=== PATIENT | male | born 1945 | race Caucasian/White ===

== ENCOUNTER 2024-09-23 00:36 | Emergency (ER) | payer MEDICARE, SELFPAY ==
[2024-09-23] VITALS (15 sets, daily range): BP systolic 47–96; BP diastolic 29–68; PULSE 49–114; RESP 14–35; TEMP 36.2–36.7; O2SAT 78–98; BMI 23.6
--- NOTE | 2024-09-23 00:48 | EKG12_ITS ---
Test Reason : ASPIRATION Blood Pressure : */* mmHG Vent. Rate : 88 BPM Atrial Rate : 88 BPM P-R Int : 190 ms QRS Dur : 134 ms QT Int : 404 ms P-R-T Axes : 39 5 124 degrees QTcB Int : 488 ms Normal sinus rhythm Non-specific intra-ventricular conduction block Minimal voltage criteria for LVH, may be normal variant ( Raffi product ) Inferior infarct , age undetermined T wave abnormality, consider lateral ischemia Abnormal ECG Confirmed by TRICIA PRITCHETT, NAZ ([id number]), technical writer and editor OSMIN MANRIQUE ([id number]) on 09/23/2024 8:26:13 AM Referred By: CRISTO Confirmed By: NAZ CLARKE MD
--- NOTE | 2024-09-23 00:48 | CT_ITS ---
PROCEDURE: BRAIN/HEAD WITHOUT CONTRAST 09/23/2024 REASON FOR EXAM: AMS TECHNIQUE: Head CT without intravenous contrast. Coronal and Sagittal reconstruction series were provided. One or more dose reduction techniques were used (e.g., Automated exposure control, adjustment of the mA and/or kV according to patient size, use of iterative reconstruction technique. RADIATION DOSE SUMMARY: CTDlvol: 44.99 mGy DLP: 1727.20 mGycm COMPARISON: None available FINDINGS: Nasal intubation with enteric tube and dual oral intubation with an enteric and orogastric tube. Motion artifact with repeat imaging. The head is tilted to the right. No intracranial hemorrhage, mass effect or CT evidence of large vascular territory acute infarct. Chronic and involutional changes, age advanced. Volume loss, atrophy, asymmetric atrophy of the left cerebellum. Old lacunar infarct left basal ganglia. Mild periventricular white matter low attenuation may represent chronic small-vessel ischemic change. The ventricles appear within limits and midline. Small air-fluid level within the left maxillary sinus with a small amount of frothy material, possible sinusitis. The paranasal sinuses, mastoids and orbits otherwise appear within limits. Bilateral parasellar carotid calcification. Likely cerumen right external auditory canal. CT/Brain/Head without Contrast IMPRESSION: Motion artifact limits the evaluation with 2 scans performed. No evidence of i ntracranial hemorrhage, mass effect or large vascular territory acute infarct by CT. Chronic and involutional changes. Left maxillary sinusitis as above. Nasal and oral intubation as above. Reading Location: [id number]
[2024-09-23] MEDS: 0.9% Normal Saline (1000mL) 1,000 ML 999 ML IV ×3 (00:50→02:53)
[2024-09-23] MEDS: Etomidate 20 MG/10 ML Vial IV (01:04)
[2024-09-23] MEDS: Succinylcholine Chloride 200 MG/10 ML Vial 100 MG IV (01:05)
[2024-09-23 01:06] LABS: Absolute Lymphocyte Count 0.67 X10^3/uL (0.83-4.51); Absolute Neutrophil Count 17.2 X10^3/uL (2.0-7.7); Basophil% 0.5 % (0-1); Eosinophil# 0.08 X10^3/uL; Eosinophils% 0.4 % (0-5); Hematocrit 47.1 % (40-54); Hemoglobin 15.4 g/dL (13.0-16.5); Lymphocyte # 0.67 X10^3/ul (0.83-4.51); Lymphocyte % 3.7 % (19-41); Mean Corp Hgb Conc 32.7 g/dL (32-36); Mean Corpuscular Hgb 30.6 pg (27.0-32.0); Mean Corpuscular Volume 93.5 fL (80-94); Mean Platelet Vol. 10.2 fl (6.2-12.0); Monocyte% 1.1 % (0-10); NRBC Flagged by Analyzer 0 % (0-5); Neutrophil % 93.8 % (47-70); POSITIVE MORPHOLOGY YES; Platelet Count 415 K/mm3 (150-450); RBC Distribution Width CV 17.3 % (11.6-14.6); RBC Distribution Width SD 57.7 fl (35.1-43.9); Red Blood Count 5.04 M/mm3 (4.6-6.2); White Blood Count 18.4 K/mm3 (4.4-11.0)
[2024-09-23 01:07] LABS: Differential Indicated SCAN CRITERIA MET
--- NOTE | 2024-09-23 01:07 | RAD_ITS ---
PROCEDURE: CHEST 1 VIEW (PORTABLE) 09/23/2024 REASON FOR EXAM: SOB, S/P INTUBATION TECHNIQUE: Frontal view of the chest. COMPARISON: None available FINDINGS: Endotracheal tube 3.5 cm above the asad. Nasogastric tube tip and side port within the fundus of the stomach. Enteric tube to the right of the spine with tip in the area of the antrum, not beyond the duodenal jejunal junction. Asymmetric lgawf-wzttdak-wovj-left marked appearing perihilar ill-defined airspace opacities with a right upper zone predominance consistent with pneumonia/pneumonitis, possible aspiration. No pleural effusion identified. Cardiac silhouette is mildly enlarged for technique. Ectatic thoracic aorta. RAD/Chest 1 View (Portable) IMPRESSION: Endotracheal tube 3.5 cm above the asad. Nasogastric tube tip and side port within the fundus of the stomach. Enteric tube to the right of the spine with tip in the area of the antrum, not beyond the duodenal jejunal junction. Asymmetric ljtts-zhzglzy-satw-left marked appearing perihilar ill-defined airsp trinity opacities with a right upper zone predominance consistent with pneumonia/pneumonitis, possible aspiration. No pleural effusion identified. Cardiac silhouette is mildly enlarged for technique. Reading Location: [id number]
--- NOTE | 2024-09-23 01:11 | RAD_ITS ---
EXAM: Diagnostic x-ray abdomen single view portable CLINICAL HISTORY: Nasogastric insertion COMPARISON: None available TECHNIQUE: Single AP semi erect view of the abdomen centered at the diaphragms FINDINGS: Nasogastric tube tip and side port within the fundus of the stomach. Enteric tube to the right of the spine with tip in the area of the antrum, not beyond the duodenal jejunal junction. Please refer to chest radiograph for additional findings. RAD/Abdomen Single View (Portable) IMPRESSION: Nasogastric tube tip and side port within the fundus of the stomach. Enteric tube to the right of the spine with tip in the area of the antrum, not beyond the duodenal jejunal junction. Please refer to chest radiograph for additional findings. Reading Location: [id number]
[2024-09-23] MEDS: fentaNYL drip 100 ML 5 MCG CONT INF (01:15)
[2024-09-23 01:22] LABS: International Normalized Ratio 1.1; Prothrombin Time (Protime)PT. 14.1 SECONDS (11.7-14.9)
[2024-09-23 01:23] LABS: Partial Thromboplast Time 25.6 Seconds (24.1-36.2)
[2024-09-23 01:34] LABS: Anisocytosis RARE; Macrocytosis RARE; Platelet Estimate SLT INC (ADEQ); Red Cell Morphology N CHROM NORMAL (NORM C&C)
[2024-09-23 01:35] LABS: ALB/GLOB Ratio 0.8 RATIO (0.9-2.4); AST(SGOT) 46 U/L (<=37); Alanine Aminotransfer ALT/SGPT 50 U/L (<=46); Alkaline Phosphatase 227 U/L (40-129); Anion Gap 18 (5-15); BUN 48 mg/dL (4-19); BUN/Creat Ratio 28.2 RATIO (10-20); Calcium,Total 9.3 mg/dL (7.6-11.0); Carbon Dioxide 18.8 mmol/L (21.0-32.0); Chloride 92 mmol/L (98-108); EST Glomerular Filtration Rate 41 (>60); Estimated Creatinine Clearance 38.67 ml/min (50-250); Globulin 3.7 g/dL (2.2-4.2); Glucose 193 mg/dL (70-99); Potassium 5.3 mmol/L (3.3-5.1); Protein, Total 6.7 g/dL (5.9-8.4); Sodium Level 129 mmol/L (133-145); Total Bilirubin 0.86 mg/dL (0.00-1.30)
[2024-09-23 01:37] LABS: Lactic Acid 4.6 mmol/L (0.0-2.0)
[2024-09-23 01:49] LABS: Allen Test Positive; Base Excess -8 mmol/L (-2 to +2); Bicarbonate 20.3 mmol/L (22-26); Blood Gas Specimen Type ART; Mode AC; O2 Delivery Device Adult Vent; PEEP 5; PO2 74 mmHG (75-100); RR 14; SITE L Radial; SO2 91 % (95-99); Total Carbon Dioxide 22 mmol/L; pCO2 52.1 mmHg (35-45)
[2024-09-23 02:04] LABS: Troponin T High Sensitivity 120 ng/L (<=22)
--- NOTE | 2024-09-23 02:08 | CPS ---
[employer] notified ER Dr. Yanez of critical values
[2024-09-23 02:46] LABS: CPK Total, Creatine Kinase 44 U/L (24-195); Triglycerides 58 mg/dL
[2024-09-23] MEDS: Cefepime HCl 2 GM in 0.9% Normal Saline (100mL MB+) 100 ML IV (03:01)
[2024-09-23 03:28] LABS: Mucous, Urine 0 SEEN /hpf (<or=2+); Squamous Epithelial Cells - UA 0 SEEN /hpf (0-5)
[2024-09-23 03:31] LABS: Glucose, Dipstick 1000 mg/dl (Normal); Ketone-Dipstick Negative (Negative); Leukocyte Esterase-Dipstick 25 /ul (Negative); Nitrite-Dipstick Negative (Negative); Occult Blood-Urine 150 /ul (Negative); Protein-Dipstick 30 mg/dl (Negative); Specific Gravity, Urine 1.015 (1.002-1.030); Urine Bilirubin Dipstick Negative (Negative); Urine Urobilinogen 1 mg/dl (Normal)
[2024-09-23] MEDS: Vancomycin HCl 1,250 MG in 0.9% Normal Saline (250mL Bag) 250 ML 167 MG IV (03:43)
[2024-09-23 03:44] LABS: Color, Urine Yellow (Yellow); Urine Clarity Clear (Clear)
[2024-09-23 03:45] LABS: Bacteria 1+ /hpf (None Seen); Red Blood Cells-Urine 50-100 SEEN /hpf (0-5); White Blood Cells 10-25 SEEN /hpf (0-5)
--- NOTE | 2024-09-23 03:49 | EX.ED.DYSGE1 ---
HPI History of Present Illness Chief Complaint: Shortness of Breath Narrative Narrative: Patient is a 79-year-old male who presents to the emergency department with limited information via EMS with a chief complaint of altered mental status and concern for aspirating tube feeds. According to EMS his oxygen level was around 80% they placed him on oxygen and brought him here for further evaluation management. History of present illness was unobtainable from the patient secondary to his altered mental status therefore acute care caveat applies PFSH PFS Medical History unable to obtain Home Medications ?Medication ?Instructions ?Recorded ?Last Taken ?Type amiodarone 200 mg tablet 200 mg feeding tube BID 09/23/24 Unknown History aspirin 81 mg capsule 81 mg feeding tube DAILY 09/23/24 Unknown History atorvastatin 40 mg tablet 40 mg feeding tube QHS 09/23/24 Unknown History captopril 12.5 mg tablet 12.5 mg feeding tube Q8H 09/23/24 Unknown History clopidogrel 75 mg tablet 75 mg feeding tube DAILY 09/23/24 Unknown History empagliflozin 10 mg tablet 10 mg feeding tube DAILY 09/23/24 Unknown History ferrous sulfate 300 mg (60 mg 300 mg feeding tube DAILY 09/23/24 Unknown History iron)/5 mL oral liquid furosemide 40 mg tablet 40 mg feeding tube QODAY 09/23/24 Unknown History insulin glargine 100 unit/mL 20 unit subcut DAILY 09/23/24 Unknown History subcutaneous solution ipratropium 0.5 mg-albuterol 3 mg 3 ml inhalation Q6H PRN shortness 09/23/24 Unknown History (2.5 mg base)/3 mL nebulization of breath or wheezing soln levothyroxine 137 mcg capsule 137 mcg PO DAILY 09/23/24 Unknown History pantoprazole 40 mg PO DAILY 09/23/24 Unknown History spironolactone 25 mg tablet 25 mg feeding tube DAILY 09/23/24 Unknown History Allergy/AdvReac Type Severity Reaction Status Date / Time No Known Allergies Allergy Verified 09/23/24 00:54 Surgical History unable to obtain Social History Smoking Status: Unknown if ever smoked ROS ROS ED ROS Narrative Review of systems unobtainable from the patient and for acute care caveat applies EXAM Physical Exam Narrative Exam Narrative: General: Patient was unresponsive upon arrival Head: Atraumatic, normocephalic Eyes: PERRL bilateral, EOMI by, no conjunctival injection noted Neck: Soft and supple, trach midline Cardiovascular: Regular rate and rhythm no murmurs gallops rubs noted Respiratory: Coarse breath sounds bilaterally Abdomen: Soft, nondistended Extremities: Radial pulse +2/4 in the bilateral extremities Neurological: Patient not following commands was altered Skin: Warm, dry Const Vital Signs: 09/23/24 00:38 09/23/24 00:42 09/23/24 00:48 Temperature 97.3 F L 97.3 F L Temperature Source Axillary Axillary Pulse Rate 114 H 106 H Respiratory Rate 33 H 35 H Respiratory Effort Respiratory Pattern Blood Pressure 94/68 94/68 Blood Pressure Mean 76 76 Pulse Ox 89 87 Oxygen Delivery Method Non-Rebreather Non-Rebreather Non-Rebreather Oxygen Flow Rate (L/min) 15 Fraction of Inspired Oxygen (FIO2) 09/23/24 01:03 09/23/24 01:07 09/23/24 01:25 Temperature Temperature Source Pulse Rate 97 92 Respiratory Rate 17 32 H Respiratory Effort Short of Breath Labored Respiratory Pattern Tachypnea Blood Pressure 75/36 L Blood Pressure Mean 49 Pulse Ox 93 92 Oxygen Delivery Method Non-Rebreather Mechanical Ventilator Oxygen Flow Rate (L/min) 15 15 Fraction of Inspired Oxygen (FIO2) 100 09/23/24 01:30 09/23/24 01:55 09/23/24 02:00 Temperature 97.2 F L Temperature Source Axillary Pulse Rate 89 90 Respiratory Rate 34 H 31 H Respiratory Effort Respiratory Pattern Blood Pressure 89/49 L 96/60 Blood Pressure Mean 62 72 Pulse Ox 98 92 Oxygen Delivery Method Mechanical Ventilator Mechanical Ventilator Oxygen Flow Rate (L/min) Fraction of Inspired Oxygen (FIO2) 100 100 100 09/23/24 02:30 09/23/24 03:00 09/23/24 03:00 Temperature Temperature Source Pulse Rate 93 93 93 Respiratory Rate 32 H 31 H 31 H Respiratory Effort Respiratory Pattern Normal Blood Pressure 95/46 L 95/52 L Blood Pressure Mean 62 66 Pulse Ox 90 90 88 Oxygen Delivery Method Mechanical Ventilator Mechanical Ventilator Oxygen Flow Rate (L/min) Fraction of Inspired Oxygen (FIO2) 100 100 100 09/23/24 03:30 09/23/24 04:00 09/23/24 04:00 Temperature 98.1 F Temperature Source Axillary Pulse Rate 91 87 87 Respiratory Rate 31 H 30 H 30 H Respiratory Effort Respiratory Pattern Blood Pressure 80/43 L 71/38 L 71/37 L Blood Pressure Mean 55 49 48 Pulse Ox 92 93 93 Oxygen Delivery Method Mechanical Ventilator Mechanical Ventilator Mechanical Ventilator Oxygen Flow Rate (L/min) Fraction of Inspired Oxygen (FIO2) 100 100 100 09/23/24 04:00 09/23/24 04:30 09/23/24 04:34 Temperature 98.1 F Temperature Source Pulse Rate 90 84 84 Respiratory Rate 28 H 27 H 27 H Respiratory Effort Respiratory Pattern Normal Blood Pressure 74/42 L 74/42 L Blood Pressure Mean 52 52 Pulse Ox 85 85 85 Oxygen Delivery Method Mechanical Ventilator Oxygen Flow Rate (L/min) Fraction of Inspired Oxygen (FIO2) 100 100 MDM MDM MDM Narrative Medical decision making narrative: Patient is a 79-year-old male who presents to the emergency department with a chief complaint of altered mental status hypoxia and concern for tube feed aspiration. On the differential diagnose includes but not limited to intracranial hemorrhage, pneumonia, pneumothorax, UTI. Once workup is obtained reviewed he will be reevaluated Once again the patient was unresponsive when he arrived staff tried to suction his nose and he did not move therefore we reach out to family members and they state that he is a full code. Patient was intubated here in the emergency department and was ultimately placed on the ventilator with further workup pending. Patient's CBC was significant for leukocytosis of 18,000, hemoglobin 15.4, plate count was noted to be normal at 415. Patient's INR was noted to be 1.1, PT of 14.1. Patient's arterial blood gas showed a pH 7.14. Patient sodium was low indicating hyponatremia at 129, potassium was 5.3, creatinine elevated 1.70. Patient lactic acid elevated 4.6, AST and ALT are 46 and 50 respectively. Patient's troponin was noted to be 120 with delta troponin pending. Patient's EKG showed sinus rhythm with a rate of 88 bpm there was some elevation noted in leads II and aVF. I reached out to on-call director of research Dr. Morales who reviewed and states that there are Q waves noted there and this is not acute no acute intervention at this point time. Patient's urinalysis reviewed showed 25 leukocyte esterase 10-25 white cells with 1+ bacteria. Patient's x-ray of his chest reviewed showed endotracheal tube 3.5 cm above the asad no pleural effusion. There is asymmetric right greater than left marked appearing perihilar ill defined airspace opacities with right upper zone predominance consistent with pneumonitis/pneumonia possible aspiration. NG tube tip and sideport within the fundus of the stomach. Enteric tube tip right of the spine with tip in the area of the antrum not beyond the duodenal jejunal junction. Patient was ordered vancomycin and cefepime at 3 AM. Patient's family members arrived at bedside and nursing staff had conversation with them in regards to CODE STATUS and they would like to discuss with myself about this. They note that while at [facility] he had a cardiac arrest multiple times he ultimately had stents placed and needed a defibrillator however they placed him on a LifeVest and just recently discharged him on the to nursing facility. I went in and discussed with family at bedside and was ultimately decided they would like to do DNR CCA okay to intubate with no further aggressive measures and they want to go home and in the morning have family return and will likely do hospice. Given they will plan to transition to hospice will discuss case with hospitalist here for admission to the intensive care unit as opposed to transferring back to [facility]. Went in and had discussion with the family gave them update on the results. It was ultimately decided that the patient will be made DNR CCA okay to intubate for now. They would like to keep the patient on the ventilator and have family members come in tomorrow morning and transition to hospice at that point time. We had discussion and they are in agreement that we will not provide any further aggressive measures we will continue the care that we are at currently. Family member at bedside was agreeable with this plan as well as his significant other. Called and discussed the case with hospitalist Dr. Thurman who will accept the patient for admission to the ICU. He is requesting a IV dose of albumin which was ordered. All question concerns were answered at bedside. Repeat arterial blood gas was obtained and reviewed showed a pH 7.14 with a pCO2 of 64 we increased his tidal volume to 500. Lab Data Labs: Laboratory Results - last 24 hr 09/23/24 09/23/24 09/23/24 00:52 00:58 04:02 WBC 18.4 H RBC 5.04 Hgb 15.4 Hct 47.1 MCV 93.5 MCH 30.6 MCHC 32.7 RDW Std Deviation 57.7 H RDW Coeff of Chantal 17.3 H Plt Count 415 MPV 10.2 Immature Gran % (Auto) 0.500 Neut % (Auto) 93.8 H Lymph % (Auto) 3.7 L [place] % (Auto) 1.1 Eos % (Auto) 0.4 Baso % (Auto) 0.5 Absolute Neuts (auto) 17.2 H Absolute Lymphs (auto) 0.67 L Nucleated RBC % 0 Platelet Estimate SLT INC RBC Morphology N CHROM Anisocytosis RARE Macrocytosis RARE PT 14.1 INR 1.1 APTT 25.6 Sodium 129 L Potassium 5.3 H Chloride 92 L Carbon Dioxide 18.8 L Anion Gap 18 H BUN 48 H Creatinine 1.70 H Estim Creat Clear Calc 38.67 L Est GFR (MDRD) Non-Af 41 L BUN/Creatinine Ratio 28.2 H Glucose 193 H Lactic Acid 4.6 H* Calcium 9.3 Total Bilirubin 0.86 AST 46 H ALT 50 H Alkaline Phosphatase 227 H Total Creatine Kinase 44 Troponin T High Sens 120 H* Troponin T Hi Sens 2 Hr 170 H* Total Protein 6.7 Albumin 3.0 L Globulin 3.7 Albumin/Globulin Ratio 0.8 L Triglycerides 58 Urine Color Yellow Urine Clarity Clear Urine pH 6.0 Ur Specific [place] 1.015 Urine Protein 30 H Urine Glucose (UA) 1000 H Urine Ketones Negative Urine Occult Blood 150 H Urine Nitrite Negative Urine Bilirubin Negative Urine Urobilinogen 1 H Ur Leukocyte Esterase 25 H Urine RBC 50-100 SEEN Urine WBC 10-25 SEEN Ur Squamous Epith Cells 0 SEEN Urine Bacteria 1+ Urine Mucus 0 SEEN ABG Data ABG results: ABG 09/23/24 09/23/24 01:45 03:46 Specimen Type ART ART Sample Site L Radial L Radial pH 7.20 L 7.14 L* Bicarbonate Actual 20.3 L 22.2 Total CO2 22 24 Base Excess -8 L -7 L O2 Saturation 91 L 87 L O2 % 100.0 100.0 ABG pCO2 52.1 H 64.6 H ABG pO2 74 L 69 L Jacob Test Positive Positive Respiration Rate 14 18 O2 Delivery Device Adult Vent Adult Vent Vent Mode AC AC Tidal Volume 450.0 450.0 POC PEEP 5 8 Crit Call To/Read Back Yes Yes Blood Gas Notified Whom Dr. Yanez Blood Gas Notified Time 03:48:28 Radiography Diagnostic Testing: Clinical Impression(s) from Imaging Studies Brain CT 09/23/24 00:48 IMPRESSION: Motion artifact limits the evaluation with 2 scans performed. No evidence of intracranial hemorrhage, mass effect or large vascular territory acute infarct by CT. Chronic and involutional changes. Left maxillary sinusitis as above. Nasal and oral intubation as above. Reading Location: [facility] Chest X-Ray 09/23/24 01:07 IMPRESSION: Endotracheal tube 3.5 cm above the asad. Nasogastric tube tip and side port within the fundus of the stomach. Enteric tube to the right of the spine with tip in the area of the antrum, not beyond the duodenal jejunal junction. Asymmetric nagaq-[id number]-wrfd-left marked appearing perihilar ill-defined airspace opacities with a right upper zone predominance consistent with pneumonia/pneumonitis, possible aspiration. No pleural effusion identified. Cardiac silhouette is mildly enlarged for technique. Reading Location: [facility] KUB X-Ray 09/23/24 01:11 IMPRESSION: Nasogastric tube tip and side port within the fundus of the stomach. Enteric tube to the right of the spine with tip in the area of the antrum, not beyond the duodenal jejunal junction. Please refer to chest radiograph for additional findings. Reading Location: [facility] Discharge Plan Triage Chief Complaint: Shortness of Breath ED Provider: Calin Yanez Dx/Rx/DC Orders Clinical Impression: Altered mental status, Pneumonia, Sepsis with encephalopathy and septic shock, Acute hypoxemic respiratory failure Primary Care Provider: Julia Chaney Disposition Disposition: Acute Care Hospital [facility]
[2024-09-23 03:50] LABS: Allen Test Positive; Base Excess -7 mmol/L (-2 to +2); Bicarbonate 22.2 mmol/L (22-26); Blood Gas Specimen Type ART; Mode AC; O2 Delivery Device Adult Vent; PEEP 8; PO2 69 mmHG (75-100); RR 18; SITE L Radial; SO2 87 % (95-99); Total Carbon Dioxide 24 mmol/L; pCO2 64.6 mmHg (35-45); pH 7.14 (7.35-7.45)
--- NOTE | 2024-09-23 04:11 | ED.RN ---
Patient is now a DNR-CCA. Per MD, no new orders.
--- NOTE | 2024-09-23 04:30 | ED.RN ---
MD and RT aware of the patient's pulse ox and BP. However d/t code status no new orders. Per discussion with RT, vent settings are at a maximum for this patient at this time. MD aware.
[2024-09-23 04:39] LABS: Troponin T High Sens 2 HR 170 ng/L (<=22)
--- NOTE | 2024-09-23 04:52 | HP.PCM.HOS_ITS ---
[facility] - General General Date of Admission: 09/23/24 Date of Service: 09/23/24 Chief Complaint: SOB and AMS. HPI Narrative VICKIE WALDRON, is a 79 M with a past medical history of essential hypertension; on captopril, furosemide and spironolactone, hyperlipidemia; on atorvastatin, hypothyroidism; on levothyroxine, DM-2; of unknown control on empagliflozin and insulin glargine 20U sq daily, KAMRON; on ferrous sulfate, history of GERD; on pantoprazole, OA and recent admission to [facility] [place] with patient having Cardiac Arrest; s/p stents x 3 on BASA, clopidogrel and amiodarone with patient recently discharged back to [facility] a few days ago with Life-Vest still in place who presents to [facility] ER complaining of SOB and AMS. Mr. Waldron was intubated shortly after arrival so information was gathered from chart, medical staff and computer. [facility] Medical History unable to obtain Home Medications ?Medication ?Instructions ?Recorded ?Last Taken ?Type amiodarone 200 mg tablet 200 mg feeding tube BID 08/28 02/20 Unknown History aspirin 81 mg capsule 81 mg feeding tube DAILY Unknown History atorvastatin 40 mg tablet 40 mg feeding tube QHS 09/23 Unknown History captopril 12.5 mg tablet 12.5 mg feeding tube Q8H Unknown History clopidogrel 75 mg tablet 75 mg feeding tube DAILY Unknown History empagliflozin 10 mg tablet 10 mg feeding tube DAILY Unknown History ferrous sulfate 300 mg (60 mg 300 mg feeding tube AMANDA Y 09/23/24 Unknown History iron)/5 mL oral liquid furosemide 40 mg tablet 40 mg feeding tube QODAY Unknown History insulin glargine 100 unit/mL 20 unit subcut DAILY 08/28 02/20 Unknown History subcutaneous solution ipratropium 0.5 mg-albuterol 3 mg 3 ml inhalation Q6H PRN shortness 09/23/24 Unknown History (2.5 mg base)/3 mL nebulization of breath or wheezing soln levothyroxine 137 mcg capsule 137 mcg PO DAILY 5 Unknown History pantoprazole 40 mg PO DAILY 09/23/24 Unkn own History spironolactone 25 mg tablet 25 mg feeding tube DAILY 0 09/23/24 Unknown History Allergy/AdvReac Type Severity Reaction Status Date / Time No Known Allergies Allergy Verified 09/23/24 00:54 Surgical History unable to obtain Social History Smoking Status: Unknown if ever smoked Vital Signs Vital Signs Vital Signs: 09/23/24 00:38 09/23/24 00:42 09/23/24 00:48 Temperature 97.3 F L 97.3 F L Temperature Source Axillary Axillary Pulse Rate 114 H 106 H Respiratory Rate 33 H 35 H Respiratory Effort Respiratory Pattern Blood Pressure 94/68 94/68 Blood Pressure Mean 76 76 Pulse Ox 89 87 Oxygen Delivery Method Non-Rebreather Non-Rebreather Non-Rebreather Oxygen Flow Rate (L/min) 15 Fraction of Inspired Oxygen (FIO2) 09/23/24 01:03 09/23/24 01:07 09/23/24 01:25 Temperature Temperature Source Pulse Rate 97 92 Respiratory Rate 17 32 H Respiratory Effort Short of Breath Labored Respiratory Pattern Tachypnea Blood Pressure 75/36 L Blood Pressure Mean 49 Pulse Ox 93 92 Oxygen Delivery Method Non-Rebreather Mechanical Ventilator Oxygen Flow Rate (L/min) 15 15 Fraction of Inspired Oxygen (FIO2) 100 09/23/24 01:30 09/23/24 01:55 09/23/24 02:00 Temperature 97.2 F L Temperature Source Axillary Pulse Rate 89 90 Respiratory Rate 34 H 31 H Respiratory Effort Respiratory Pattern Blood Pressure 89/49 L 96/60 Blood Pressure Mean 62 72 Pulse Ox 98 92 Oxygen Delivery Method Mechanical Ventilator Mechanical Ventilator Oxygen Flow Rate (L/min) Fraction of Inspired Oxygen (FIO2) 100 100 100 09/23/24 02:30 09/23/24 03:00 09/23/24 03:00 Temperature Temperature Source Pulse Rate 93 93 93 Respiratory Rate 32 H 31 H 31 H Respiratory Effort Respiratory Pattern Normal Blood Pressure 95/46 L 95/52 L Blood Pressure Mean 62 66 Pulse Ox 90 90 88 Oxygen Delivery Method Mechanical Ventilator Mechanical Ventilator Oxygen Flow Rate (L/min) Fraction of Inspired Oxygen (FIO2) 100 100 100 09/23/24 03:30 09/23/24 04:00 09/23/24 04:00 Temperature 98.1 F Temperature Source Axillary Pulse Rate 91 87 87 Respiratory Rate 31 H 30 H 30 H Respiratory Effort Respiratory Pattern Blood Pressure 80/43 L 71/38 L 71/37 L Blood Pressure Mean 55 49 48 Pulse Ox 92 93 93 Oxygen Delivery Method Mechanical Ventilator Mechanical Ventilator Mechanical Ventilator Oxygen Flow Rate (L/min) Fraction of Inspired Oxygen (FIO2) 100 100 100 09/23/24 04:30 09/23/24 04:34 Temperature 98.1 F Temperature Source Pulse Rate 84 84 Respiratory Rate 27 H 27 H Respiratory Effort Respiratory Pattern Blood Pressure 74/42 L 74/42 L Blood Pressure Mean 52 52 Pulse Ox 85 85 Oxygen Delivery Method Mechanical Ventilator Oxygen Flow Rate (L/min) Fraction of Inspired Oxygen (FIO2) 100 Weight Weight: 173 lb 15.115 oz Body Mass Index (BMI) 23.6 Results Lab / Micro Data 09/23/24 00:52 09/23/24 00:52 Labs: Laboratory Results - last 24 hr 09/23/24 00:52: WBC 18.4 H, RBC 5.04, Hgb 15.4, Hct 47.1, MCV 93.5, MCH 30.6, MCHC 32.7, RDW Std Deviation 57.7 H, RDW Coeff of Chantal 17.3 H, Plt Count 415, MPV 10.2, Immature Gran % (Auto) 0.500, Neut % (Auto) 93.8 H, Lymph % (Auto) 3.7 L, [place] % (Auto) 1.1, Eos % (Auto) 0.4, Baso % (Auto) 0.5, Absolute Neuts (auto) 17.2 H, Absolute Lymphs (auto) 0.67 L, Nucleated RBC % 0, Platelet Estimate SLT INC, RBC Morphology N CHROM, Anisocytosis RARE, Macrocytosis RARE, PT 14.1, INR 1.1, APTT 25.6, Sodium 129 L, Potassium 5.3 H, Chloride 92 L, Carbon Dioxide 18.8 L, Anion Gap 18 H, BUN 48 H, Creatinine 1.70 H, Estim Creat Clear Calc 38.67 L, Est GFR (MDRD) Non-Af 41 L, BUN/Creatinine Ratio 28.2 H, Glucose 193 H, Lactic Acid 4.6 H*, Calcium 9.3, Total Bilirubin 0.86, AST 46 H, ALT 50 H, A lkaline Phosphatase 227 H, Total Creatine Kinase 44, Troponin T High Sens 120 H* , Total Protein 6.7, Albumin 3.0 L, Globulin 3.7, Albumin/Globulin Ratio 0.8 L, Triglycerides 58 09/23/24 00:58: Urine Color Yellow, Urine Clarity Clear, Urine pH 6.0, Ur Specific Bath 1.015, Urine Protein 30 H, Urine Glucose (UA) 1000 H, Urine Ketones Negative, Urine Occult Blood 150 H, Urine Nitrite Negative, Urine Bilirubin Negative, Urine Urobilinogen 1 H, Ur Leukocyte Esterase 25 H, Urine RBC 50-100 SEEN, Urine WBC 10-25 SEEN, Ur Squamous Epith Cells 0 SEEN, Urine Bacteria 1+, Urine Mucus 0 SEEN 09/23/24 04:02: Troponin T Hi Sens 2 Hr 170 H* Micro: Microbiology 09/23/24 01:00 Mucosa - Nasopharyngeal SARS-CoV-2, Influenza & RSV (PCR) - Final ABG Data ABG results: ABG 09/23/24 09/23/24 01:45 03:46 Specimen Type ART ART Sample Site L Radial L Radial pH 7.20 L 7.14 L* Bicarbonate Actual 20.3 L 22.2 Total CO2 22 24 Base Excess -8 L -7 L O2 Saturation 91 L 87 L O2 % 100.0 100.0 ABG pCO2 52.1 H 64.6 H ABG pO2 74 L 69 L Jacob Test Positive Positive Respiration Rate 14 18 O2 Delivery Device Adult Vent Adult Vent Vent Mode AC AC Tidal Volume 450.0 450.0 POC PEEP 5 8 Crit Call To/Read Back Yes Yes Blood Gas Notified Whom Dr. Yanez Blood Gas Notified Time 03:48:28 Imaging Radiology Impression Brain CT 09/23/24 00:48 IMPRESSION: Motion artifact limits the evaluation with 2 scans performed. No evidence of intracranial hemorrhage, mass effect or large vascular territory acute infarct by CT. Chronic and involutional changes. Left maxillary sinusitis as above. Nasal and oral intubation as above. Reading Location: [id number] Chest X-Ray 09/23/24 01:07 IMPRESSION: Endotracheal tube 3.5 cm above the asad. Nasogastric tube tip and side port within the fundus of the stomach. Enteric tube to the right of the spine with tip in the area of the antrum, not beyond the duodenal jejunal junction. Asymmetric [id number]-[id number]-left marked appearing perihilar ill-defined airspace opacities with a right upper zone predominance consistent with pneumonia/pneumonitis, possible aspiration. No pleural effusion identified. Cardiac silhouette is mildly enlarged for technique. Reading Location: [id number] X-Ray 09/23/24 01:11 IMPRESSION: Nasogastric tube tip and side port within the fundus of the stomach. Enteric tube to the right of the spine with tip in the area of the antrum, not beyond the duodenal jejunal junction. Please refer to chest radiograph for additional findings. Reading Location: [id number]
--- NOTE | 2024-09-23 05:38 | ED.RN ---
Approximately 255ml given within last hour of life.
--- NOTE | 2024-09-23 06:31 | ED.RN ---
Attempted several times to contact Dr Chaney, no answer. Nursing staff at [facility] reports that Dr. Chaney will sign certificate.
--- NOTE | 2024-09-23 10:31 | ED.RN ---
CALLED BECAUSE SHE HAD A MESSAGE TO CALL THE ED. SHE WAS NOT AWARE THAT HER HAD . SHE STATED THAT THE PTS SON NEVER TELLS ME ANYTHING.
--- NOTE | 2024-09-23 11:22 | ED.RN ---
CALLED BACK AND ASKED IF SHE WAS ABLE TO SEE PT DUE TO JUST FINDING OUT HE HAD PASSED. I EXPLAINED THAT [place] AND THAT [place] ALLOW PEOPLE [place]. I EXPLAINED THAT PT WOULD HAVE TO SEE HIM AT THE HOME. I ALSO EXPLAINED THAT THE HOME IS AWARE HE IS READY AND THAT HE SHOULD BE GOING THERE.
== END 2024-09-23 06:15 ==
LOC: ED 03:42 → ICU 05:09
PROVIDERS: Emergency Medicine; Emergency Provider Internal Medicine; PCP Internal Medicine; Visit Provider Internal Medicine
DX: A41.9 Sepsis, unspecified organism (principal); R65.21 Severe sepsis with septic shock; J96.01 Acute respiratory failure with hypoxia; Z79.4 Long term (current) use of insulin; R41.82 Altered mental status, unspecified; G93.40 Encephalopathy, unspecified; Z95.5 Presence of coronary angioplasty implant and graft; J18.9 Pneumonia, unspecified organism; Z79.899 Other long term (current) drug therapy; Z79.890 Hormone replacement therapy; Z79.82 Long term (current) use of aspirin; Z66 Do not resuscitate
CPT/HCPCS: 31500; 31720; 36600; 51702; 70450; 71045; 74018; 80053; 81001; 82550; 82803; 83605; 84478; 84484; 85025; 85610; 85730; 87040; 87631; 93005; 94002; 96365; 96366; 96368; 99252; 99285; P9047; A4216; G0463; J0330